=== PATIENT | female | born 1965 | race Caucasian/White ===

== ENCOUNTER → 2016-11-02 | Outpatient (CLI) | payer BC, OTHER ==
--- NOTE | 2016-11-02 15:24 | REP ---
Clinical: Contusion. Technique: AP, lateral, oblique view of the left fifth toe. Findings: Nondisplaced fracture at the base of the fifth toe proximal phalanx with overlying soft tissue swelling. Impression: Acute nondisplaced fracture at the base of the fifth proximal phalanx. Signed by Karthikeyan Horton MD 11/02/2016 03:16 P
== END ==
LOC: M WUC 14:45
PROVIDERS: ATTEND Physician Assistant
DX: S92.515A Nondisplaced fracture of proximal phalanx of left lesser toe(s), initial encounter for closed fracture (principal); X58.XXXA Exposure to other specified factors, initial encounter; Y93.9 Activity, unspecified; Y92.9 Unspecified place or not applicable; Y99.8 Other external cause status

== ENCOUNTER → 2017-08-16 | Outpatient (CLI) | payer BC, OTHER ==
[2017-08-16 08:15] LABS: BASO % 0.7 % (0.0-1.0); EOS # 0.1 10^3/uL (0.0-0.50); EOS % 3.2 % (0.0-3.0); IMMATURE GRANULOCYTE % 0.2 % (0-0); LYMPH # 1.6 10^3/uL (1.5-4.5); LYMPH % 36.2 % (24.0-44.0); MEAN CORPUSCULAR HEMOGLOBIN 30.8 pg (27.0-33.0); MEAN CORPUSCULAR HGB CONC 34.2 g/dl (32.0-36.5); MEAN CORPUSCULAR VOLUME 90.2 fl (80.0-96.0); MONO # 0.4 10^3/uL (0.0-0.8); MONO % 9.8 % (0.0-5.0); NEUTROPHILS # 2.2 10^3/uL (1.8-7.7); NEUTROPHILS % 49.9 % (36.0-66.0); PLATELET COUNT, AUTOMATED 241 10^3/uL (150-450); RED CELL DISTRIBUTION WIDTH 11.9 % (11.5-14.5); WHITE BLOOD COUNT 4.4 10^3/uL (4.0-10.0)
[2017-08-16 08:58] LABS: ALBUMIN 3.9 GM/DL (3.2-5.2); ALKALINE PHOSPHATASE 74 U/L (45-117); ALT/SGPT 28 U/L (12-78); ANION GAP 7 MEQ/L (8-16); AST/SGOT 18 U/L (7-37); BILIRUBIN,TOTAL 0.6 MG/DL (0.2-1.0); BLOOD UREA NITROGEN 11 MG/DL (7-18); CALCIUM LEVEL 8.2 MG/DL (8.5-10.1); CARBON DIOXIDE LEVEL 30 MEQ/L (21-32); CHLORIDE LEVEL 106 MEQ/L (98-107); CHOLESTEROL LEVEL 208 MG/DL (<200); CREATININE FOR GFR 0.65 MG/DL (0.55-1.02); FREE T4 0.95 NG/DL (0.76-1.46); GLOMERULAR FILTRATION RATE > 60.0 (>51); GLUCOSE, FASTING 87 MG/DL (70-105); POTASSIUM SERUM 4.4 MEQ/L (3.5-5.1); SODIUM LEVEL 143 MEQ/L (136-145); TOTAL PROTEIN 6.9 GM/DL (6.4-8.2); TRIGLYCERIDES LEVEL 78 MG/DL (<150)
== END ==
LOC: M LAB 07:50
PROVIDERS: ATTEND Physician Assistant Medical
DX: Z13.0 Encounter for screening for diseases of the blood and blood-forming organs and certain disorders involving the immune mechanism (principal); Z13.29 Encounter for screening for other suspected endocrine disorder; Z13.220 Encounter for screening for lipoid disorders

== ENCOUNTER → 2018-01-08 | Outpatient (CLI) | payer BC, OTHER ==
[2018-01-08 20:38] LABS: FREE T4 1.01 NG/DL (0.76-1.46); THYROID STIMULATING HORMONE < 0.005 uIU/ML (0.358-3.740)
== END ==
LOC: M WUC 16:01
DX: E89.0 Postprocedural hypothyroidism (principal)
CPT/HCPCS: 84443

== ENCOUNTER → 2018-01-15 | Outpatient (CLI) | payer BC, OTHER ==
[2018-01-15 17:51] LABS: ANION GAP 7 MEQ/L (8-16); BLOOD UREA NITROGEN 13 MG/DL (7-18); CALCIUM LEVEL 8.5 MG/DL (8.5-10.1); CARBON DIOXIDE LEVEL 28 MEQ/L (21-32); CHLORIDE LEVEL 109 MEQ/L (98-107); CREATININE FOR GFR 0.72 MG/DL (0.55-1.30); GLOMERULAR FILTRATION RATE > 60.0 (>51); GLUCOSE, FASTING 83 MG/DL (70-100); POTASSIUM SERUM 4.7 MEQ/L (3.5-5.1); SODIUM LEVEL 144 MEQ/L (136-145)
[2018-01-15 18:56] LABS: BASO % 0.4 % (0.0-1.0); EOS # 0.1 10^3/uL (0.0-0.50); EOS % 2.3 % (0.0-3.0); HEMATOCRIT 34.8 % (36.0-47.0); HEMOGLOBIN 11.7 g/dl (12.0-15.5); IMMATURE GRANULOCYTE % 0.2 % (0-3.0); LYMPH # 2.3 10^3/uL (1.5-4.5); MEAN CORPUSCULAR HGB CONC 33.6 g/dl (32.0-36.5); MEAN CORPUSCULAR VOLUME 92.1 fl (80.0-96.0); MONO # 0.5 10^3/uL (0.0-0.8); MONO % 8.7 % (0.0-5.0); NEUTROPHILS # 2.6 10^3/uL (1.8-7.7); NEUTROPHILS % 47.4 % (36.0-66.0); PLATELET COUNT, AUTOMATED 253 10^3/uL (150-450); RED BLOOD COUNT 3.78 10^6/uL (4.00-5.40); WHITE BLOOD COUNT 5.5 10^3/uL (4.0-10.0)
== END ==
LOC: M LAB 16:03
DX: Z01.812 Encounter for preprocedural laboratory examination (principal); M20.41 Other hammer toe(s) (acquired), right foot; M79.671 Pain in right foot
CPT/HCPCS: 93005

== ENCOUNTER 2018-01-26 09:01 | Day surgery (SDC) | payer BC, OTHER ==
[2018-01-26] MEDS ORDERED: MIDAZOLAM INJ 2 MG/2 ML VIAL (J2250) As Ordered ×2 (10:09)
[2018-01-26] MEDS ORDERED: fentaNYL 100 MCG/2 ML INJECTION (J3010) As Ordered ×2 (10:10)
[2018-01-26] MEDS ORDERED: LIDOCAINE 2% INJ 100 MG/5 ML SDV (FOR ANES.) As Ordered ×2 (10:10)
[2018-01-26] MEDS ORDERED: PROPOFOL 200 MG/20 ML VIAL As Ordered ×2 (10:10)
[2018-01-26] MEDS: LR 1,000 ML IV ×2 (10:13)
[2018-01-26] MEDS ORDERED: ONDANSETRON 4MG/2ML VIAL (J2405) As Ordered ×2 (10:40)
[2018-01-26] MEDS ORDERED: dexameTHASONE 4 MG/ML 1ML VIAL (J1100) As Ordered ×2 (10:40)
[2018-01-26] MEDS ORDERED: LR 1,000 ML IV ×2 (11:45)
[2018-01-26] MEDS ORDERED: ONDANSETRON 4MG/2ML VIAL (J2405) IV ×2 (11:45)
[2018-01-26] MEDS ORDERED: NORCO, ANEXSIA 5/325MG TABLET (HYDROcodone/ACETAMINOPHEN) PO ×2 (11:45)
== END 2018-01-26 12:53 | disposition home or self-care (01) ==
LOC: M SDC 09:01
DX: M20.41 Other hammer toe(s) (acquired), right foot (principal); E03.9 Hypothyroidism, unspecified; Z98.84 Bariatric surgery status; F32.9 Major depressive disorder, single episode, unspecified; Z79.899 Other long term (current) drug therapy
CPT/HCPCS: 28285

== ENCOUNTER → 2018-05-08 | Outpatient (CLI) | payer BC, OTHER ==
[2018-05-08 19:51] LABS: FREE T4 0.91 NG/DL (0.76-1.46); THYROID STIMULATING HORMONE < 0.005 uIU/ML (0.358-3.740)
[2018-05-09 08:02] LABS: TOTAL 25(OH) VITAMIN D 34.9 NG/ML (30.0-100.0)
== END ==
LOC: M WUC 16:47
DX: E89.0 Postprocedural hypothyroidism (principal)
CPT/HCPCS: 84443

== ENCOUNTER → 2018-07-13 | Outpatient (CLI) | payer BC, OTHER | LOC: M WUC 17:18 | DX: S60.211A Contusion of right wrist, initial encounter (principal); M79.89 Other specified soft tissue disorders; X58.XXXA Exposure to other specified factors, initial encounter; Y92.9 Unspecified place or not applicable | CPT/HCPCS: 73110 ==

== ENCOUNTER 2018-08-11 15:19 | Emergency (ER) | payer BC, OTHER ==
[2018-08-11] MEDS: NORCO, ANEXSIA 5/325MG TABLET (HYDROcodone/ACETAMINOPHEN) PO (16:12)
[2018-08-11] MEDS: CelecoXIB (CeleBREX) 100 MG CAP PO (16:18)
[2018-08-12] MEDS ORDERED: ASPIRIN ENTERIC 325 MG TAB PO (09:00)
== END 2018-08-11 17:45 | disposition home or self-care (01) ==
LOC: M ED 15:19
DX: M75.32 Calcific tendinitis of left shoulder (principal); Z98.84 Bariatric surgery status; Z88.8 Allergy status to other drugs, medicaments and biological substances; Z79.899 Other long term (current) drug therapy
CPT/HCPCS: 73030

== ENCOUNTER 2018-12-16 08:26 | Emergency (ER) | payer BC, OTHER ==
[~2018-12-16] VITALS: Ht 160 cm; Wt 62.7 kg
[~2018-12-16 08:26] MED LIST: BENA25TA10 PO; CELE1CAP4 PO; CYCL10TA; HYDR-3715 PO; LEVO200T4 PO; MULT1TAB18 PO; PROZ20CA11 PO; VITA-5 PO; VITA500055 PO
[2018-12-16 08:27] VITALS: BP 165/77
[2018-12-16] MEDS ORDERED: KETOROLAC 60 MG/2 ML VIAL (J1885) IM ONE (08:45)
--- NOTE | 2018-12-16 09:27 | REP ---
Clinical: Trauma. Technique: AP, lateral, bilateral oblique and sunrise views of the right knee. Findings: Swelling is appreciated along with large suprapatellar effusion and evidence to suggest a nondisplaced vertical fracture of the patella. Visualized portions of the femur and tibia appear intact and demonstrate mild age-related changes. Impression: Nondisplaced fracture of the patella with associated swelling and suprapatellar effusion. Electronically Signed by Karthikeyan Horton MD 12/16/2018 09:19 A
== END 2018-12-16 09:21 | disposition home or self-care (01) ==
LOC: M ED 08:26
DX: S82.001A Unspecified fracture of right patella, initial encounter for closed fracture (principal); W10.1XXA Fall (on)(from) sidewalk curb, initial encounter; Y92.480 Sidewalk as the place of occurrence of the external cause; Z79.899 Other long term (current) drug therapy; Z98.84 Bariatric surgery status; Z88.8 Allergy status to other drugs, medicaments and biological substances
CPT/HCPCS: 73564; 96372; 99284; J1885

== ENCOUNTER → 2018-12-27 | Outpatient (CLI) | payer OTHER, BC ==
[2018-12-27 19:37] LABS: FREE T4 1.13 NG/DL (0.76-1.46); THYROID STIMULATING HORMONE 0.006 uIU/ML (0.358-3.740)
== END ==
LOC: M WUC 16:10
PROVIDERS: ATTEND Physician Assistant
DX: E89.0 Postprocedural hypothyroidism (principal)

== ENCOUNTER → 2019-03-20 | Outpatient (CLI) | payer BC, OTHER ==
--- NOTE | 2019-03-20 21:59 | REP ---
Clinical: Right elbow pain . Technique: AP, lateral, bilateral oblique views of the right elbow. Findings: No acute fracture or dislocation is appreciated. Joint spaces and surrounding soft tissues appear normal. Lateral view demonstrates normal positioning to the anterior and posterior fat pads without evidence for effusion/hemarthrosis. No subcutaneous emphysema or foreign body identified. Impression: Normal right elbow radiographs. Electronically Signed by Karthikeyan Horton MD 03/20/2019 09:50 P
--- NOTE | 2019-03-20 22:27 | REP ---
Clinical: Right shoulder pain. Technique: Internal rotation, external rotation, and Y view of the right shoulder. Findings: Acromioclavicular joint is intact. The glenoid appears normal. Internal rotation view demonstrates subtle cortical irregularity and fraying along the posterior margin of the humeral head which may represent old injury as well as sequelae of prior dislocation. Subacromial space is normal. No periarticular calcifications or loose bodies. Impression: Mild degenerative changes involving the humeral head as described above. Electronically Signed by Karthikeyan Horton MD 03/20/2019 10:19 P
== END ==
LOC: M WUC 15:18
PROVIDERS: ATTEND Physician Assistant
DX: M25.511 Pain in right shoulder (principal); M25.521 Pain in right elbow; M19.011 Primary osteoarthritis, right shoulder